=== PATIENT | male | born 1995 | race Caucasian/White ===

== ENCOUNTER → 2021-07-17 | Outpatient (CLI) | payer SELFPAY ==
[2021-07-17 18:52] LABS: Basophils # (A) 0.04 X 10*3/uL (0.00-0.10); Basophils % (A) 0.8 %; Eosinophils # (A) 0.08 X 10*3/uL (0.04-0.35); Eosinophils % (A) 1.6 %; HCT 46.1 % (39.6-50.0); HGB 15.5 g/dL (13.0-17.0); Lymphocytes # (A) 2.09 X 10*3/uL (0.90-5.00); Lymphocytes % (A) 42.8 %; MCH 29.9 pg (27.0-32.0); MCHC 33.6 g/dL (32.0-37.0); Mean Platelet Volume 11.1 fL (9.5-12.2); Monocytes # (A) 0.41 X 10*3/uL (0.20-1.00); Monocytes % (A) 8.4 %; Neutrophils # (A) 2.25 X 10*3/uL (1.80-7.70); Neutrophils % (A) 46.2 %; Platelet Count 188 X 10*3/uL (140-440); RBC 5.18 X 10*6/uL (4.40-5.60); RDW 12.5 % (11.5-14.5); WBC 4.88 X 10*3/uL (4.50-10.00)
== END | disposition home or self-care (01) ==
LOC: LABWHC1 11:43
PROVIDERS: ATTEND Surgery
DX: K40.90 Unilateral inguinal hernia, without obstruction or gangrene, not specified as recurrent (principal)
CPT/HCPCS: 36415; 85025

== ENCOUNTER 2021-07-24 06:03 | Day surgery (SDC) | payer OTHER ==
[2021-07-17 11:40] VITALS: BMI 29.5
[~2021-07-24 06:03] MED LIST: ACETAMINOPHEN TAB 500 MG TAB PO PRN; HEPARIN SODIUM,PORCINE/PF 5,000 UNIT/0.5 ML SYRINGE SQ PRN
[2021-07-24] MEDS ORDERED: LACTATED RINGERS 1,000 ML IV SCH (06:16)
[2021-07-24] MEDS ORDERED: SCOPOLAMINE 1.5MG/72HR PATCH TRANSDERM ONE (06:16)
[2021-07-24] MEDS ORDERED: DEXAMETHASONE SOD PHOSPHATE 4 MG/ML 1 ML VIAL IV ONE (06:16)
[2021-07-24] MEDS ORDERED: MIDAZOLAM 2 MG/2 ML VIAL IV PRN (06:16)
[2021-07-24] MEDS: ONDANSETRON 4 MG/2 ML VIAL IVP ONE ×2 (06:51→11:58)
[2021-07-24] MEDS ORDERED: LIDOCAINE 1% (10MG/ML) FOR IV START INTRADERMA ONE (06:51)
[2021-07-24] MEDS ORDERED: HYDROmorphone 0.5 MG/0.5 ML SYRINGE IVP PRN (07:00)
[2021-07-24] MEDS ORDERED: fentaNYL (PF) 50 MCG/ML 2 ML AMP ONE (07:45)
[2021-07-24] MEDS ORDERED: MIDAZOLAM 2 MG/2 ML VIAL ONE (07:45)
[2021-07-24] MEDS ORDERED: PROPOFOL 10 MG/ML 20 ML VIAL IV ONE (07:45)
[2021-07-24] MEDS ORDERED: LIDOCAINE 1% INJ 10MG/ML (20 ML MDV) ONE (07:45)
[2021-07-24] MEDS ORDERED: KETAMINE 10 MG/ML 20 ML VIAL ONE (07:45)
[2021-07-24] MEDS ORDERED: ROCURONIUM 10 MG/ML (5 ML VIAL) IV ONE (07:45)
[2021-07-24] MEDS ORDERED: GLYCOPYRROLATE 0.2 MG/ML 2 ML VIAL ONE (07:45)
[2021-07-24] MEDS ORDERED: NEOSTIGMINE 1 MG/ML 10 ML VIAL ONE (07:45)
[2021-07-24] MEDS ORDERED: BUPIVACAINE (PF) 0.25% 30 ML VIAL SQ ONE ×2 (08:16)
--- NOTE | 2021-07-24 09:35 | P.OP ---
Date of Procedure: 07/24/21 Procedure(s) Performed: PREOPERATIVE DIAGNOSIS: Left inguinal hernia POSTOPERATIVE DIAGNOSIS: Left indirect inguinal hernia PROCEDURE: Laparoscopic da Cullen assisted repair left direct inguinal hernia with mesh SURGEON: Dr. Reyes ANESTHESIA: General OPERATIVE PROCEDURE DETAILS: Patient was placed in the operating table in the supine position. The patient was placed under general anesthesia. The abdomen was prepped and draped in usual sterile fashion. A small curvilinear supraumbilical incision was made. The fascia was retracted anteriorly with [place] forceps. The Veress needle was inserted. The saline drop test was normal. Insufflation took place to 15 mmHg. An 8 mm trocar was placed into the peritoneal cavity. 2 additional 8 mm trochars were placed in the right upper quadrant and left upper quadrant under visualization. The robotic arms were then brought in and docked into place. The fenestrated bipolar was used in the left arm and the laparoscopic darwin was utilized in the right arm. A 30 8 mm scope was used in the up position. The peritoneal cavity was inspected. The patient had an obvious direct hernia on the left-hand side. There was no visible hernia on the right-hand side. The peritoneum was incised in a horizontal fashion cephalad to the internal inguinal ring. Following that careful dissection of the preperitoneal space took place. This took place using both electrocautery, sharp dissection but primarily blunt dissection. Visualization of the pubic tubercle and Duke's ligament took place medially. Full dissection took place laterally as well. The hernia sac was fully dissected. Once we had adequate space the extra-large Bard 3-D mid mesh was advanced into the preperitoneal space and flattened out appropriately to cover all potential hernia sites. A 20V lock suture was used to secure the mesh to the medial aspect of the direct hernia defect. The peritoneal defect was then closed using a absorbable 2-0 VLok suture. The hernia sac was incorporated into the peritoneal closure to help prevent future recurrence. The pneumoperitoneum was then evacuated. The skin of all 3 sites was closed using a 4-0 Monocryl stitch. Skin glue was then applied. HERNIA CHARACTERISTICS: Length: 2cm Width: 2cm Type: Direct TYPE OF MESH USED: Bard 3-D mid XL LOCATION OF MESH: Preperitoneal FIXATION: 20V lock suture DISPOSITION: Stable to recovery room
[2021-07-24] MEDS ORDERED: IV FLUID CONTINUATION 1,000 ML IV ONE ×2 (09:36)
[2021-07-24 09:43] VITALS: TEMP 97.3
[2021-07-24] MEDS ORDERED: LACTATED RINGERS 1,000 ML IV ONE (09:50)
[2021-07-24 10:16] VITALS: RESP 16
[2021-07-24] MEDS ORDERED: KETOROLAC 15 MG/ML 1 ML VIAL ONE (10:20)
[2021-07-24] MEDS ORDERED: KETOROLAC 15 MG/ML 1 ML VIAL IVP ONE (10:22)
[2021-07-24] MEDS ORDERED: ONDANSETRON 4 MG/2 ML VIAL ONE (11:56)
[2021-07-24 12:26] VITALS: BP 137/76; PULSE 45
[2021-07-24] MEDS ORDERED: IBUPROFEN 600 MG TAB PO SCH (12:30)
[2021-07-24] MEDS ORDERED: ACETAMINOPHEN TAB 325 MG TAB PO SCH (15:00)
== END 2021-07-24 12:35 | disposition home or self-care (01) ==
LOC: OR 06:03
PROVIDERS: ATTEND Surgery
DX: K40.90 Unilateral inguinal hernia, without obstruction or gangrene, not specified as recurrent (principal)
CPT/HCPCS: 49650; C1781; J2250; J1100; J2710; J0690; J2405; J2001; J3010; J1885; J2704; J1170; J1644

== ENCOUNTER 2022-09-29 20:04 | Emergency (ER) | payer BC, OTHER ==
--- NOTE | 2022-09-29 20:41 | XR ---
EXAMINATION TYPE: XR chest 2V DATE OF EXAM: 09/29/2022 8:35 PM COMPARISON: None TECHNIQUE: XR chest 2V Frontal and lateral views of the chest. CLINICAL INDICATION:Male, 27 years old with history of chest pain; FINDINGS: Lungs/Pleura: There is no evidence of pleural effusion, focal consolidation, or pneumothorax. Pulmonary vascularity: Unremarkable. Heart/mediastinum: Cardiomediastinal silhouette is unremarkable. Musculoskeletal: No acute osseous pathology. IMPRESSION: No acute cardiopulmonary disease/process.
[2022-09-29] MEDS ORDERED: KETOROLAC 15 MG/ML 1 ML VIAL IVP STA (23:01)
[2022-09-29 23:13] VITALS: TEMP 97.9
[2022-09-29 23:38] LABS: Basophils # (A) 0.1 k/uL (0-0.2); Basophils % (A) 1 %; Eosinophils # (A) 0.1 k/uL (0-0.7); Eosinophils % (A) 3 %; HCT 45.1 % (39.0-53.0); HGB 15.3 gm/dL (13.0-17.5); Lymphocytes # (A) 2.7 k/uL (1.0-4.8); Lymphocytes % (A) 47 %; MCH 30.1 pg (25.0-35.0); MCV 88.5 fL (80.0-100.0); Mean Platelet Volume 8.3; Monocytes # (A) 0.3 k/uL (0-1.0); Monocytes % (A) 6 %; Neutrophils # (A) 2.3 k/uL (1.3-7.7); Neutrophils % (A) 41 %; Platelet Count 166 k/uL (150-450); RDW 12.7 % (11.5-15.5); WBC 5.7 k/uL (3.8-10.6)
[2022-09-30 00:06] LABS: ALT 29 U/L (4-49); AST 23 U/L (17-59); African American GFR (CKD) >90 (>60 ml/min/1.73 sqM); Albumin 4.4 g/dL (3.5-5.0); Alkaline Phosphatase 76 U/L (38-126); Anion Gap 6 mmol/L; Blood Urea Nitrogen 15 mg/dL (9-20); Calcium 9.2 mg/dL (8.4-10.2); Carbon Dioxide 27 mmol/L (22-30); Chloride 108 mmol/L (98-107); Glucose 101 mg/dL (74-99); Non-African American GFR(CKD) >90 (>60 ml/min/1.73 sqM); Potassium 4.2 mmol/L (3.5-5.1); Sodium 141 mmol/L (137-145); Total Bilirubin 0.4 mg/dL (0.2-1.3); Total Protein 6.6 g/dL (6.3-8.2)
[2022-09-30 00:28] VITALS: BP 121/76; PULSE 54; RESP 16
--- NOTE | 2022-09-30 00:29 | ED ---
General Adult HPI - General Chief complaint: Chest Pain Stated complaint: Chest cramping Time Seen by Provider: 09/29/22 22:53 Source: patient Mode of arrival: ambulatory Limitations: no limitations - History of Present Illness Initial comments: Patient is a 27-year-old male presenting with chief complaint of chest pain. Pain is located in the center of the chest, sharp stabbing pain that is worse with inspiration. Denies any injury or trauma. No shortness of breath. No palpitations or weakness. No fever or chills. No nausea or vomiting. No we akness. No recent illness. No cough, congestion, sore throat. No abdominal pain. No headache or dizziness. - Related Data Previous Rx's Medication Instructions Recorded oxyCODONE HCL [OxyIR] 5 mg PO Q6H PRN 3 Days #6 tab 07/24/21 Allergies Allergy/AdvReac Type Severity Reaction Status Date / Time No Known Allergies Allergy Verified 09/29/22 20:17 Review of Systems ROS Statement: Those systems with pertinent positive or pertinent negative responses have been documented in the HPI. ROS Other: All systems not noted in ROS Statement are negative. Past Medical History Past Medical History: No Reported History History of Any Multi-Drug Resistant Organisms: None Reported Past Surgical History: Hernia Repair, Orthopedic Surgery Additional Past Surgical History / Comment(s): arthroscopy left knee, wisdom teeth Past Anesthesia/Blood Transfusion Reactions: No Reported Reaction Past Psychological History: No Psychological Hx Reported Smoking Status: Never smoker Past Alcohol Use History: Occasional Past Drug Use History: None Reported - Past Family History Sister(s) Family Medical History: Pulmonary Embolus Additional Family Medical History / Comment(s): some sort of cardiac issue & possibly PE General Exam Limitations: no limitations General appearance: alert, in no apparent distress Head exam: Present: atraumatic, normocephalic, normal inspection Eye exam: Present: normal appearance Neck exam: Present: normal inspection Respiratory exam: Present: normal lung sounds bilaterally. Absent: respiratory distress, wheezes, rales, rhonchi, stridor Cardiovascular Exam: Present: regular rate, normal rhythm, normal heart sounds. Absent: systolic murmur, diastolic murmur, rubs, gallop, clicks Neurological exam: Present: alert, oriented X3, CN II-XII intact Psychiatric exam: Present: normal affect, normal mood Skin exam: Present: warm, dry, intact, normal color. Absent: rash Course Vital Signs 09/29/22 09/29/22 09/30/22 20:17 23:05 00:27 Temperature 98.5 F 97.9 F Pulse Rate 53 L 52 L 54 L Respiratory 16 17 16 Rate Blood Pressure 122/67 116/78 121/76 O2 Sat by Pulse 98 99 98 Oximetry EKG Findings - EKG Comments: EKG Findings:: Sinus bradycardia with sinus arrhythmia. Rate 52. OK interval 152. QRS 110. QT 443. QTC 422. No ST deviation or T wave inversion. Medical Decision Making - Medical Decision Making Patient is a 27-year-old male presenting with chief complaint of chest pain. Pain is sharp and stabbing in nature, worse with inspiration. No lower extremity swelling, heart and lungs are clear to auscultation, vital signs are stable. CBC is unremarkable. Troponin is less than 0.012. Patient is negative for Covid. CMP requires no action. Chest x-ray shows no acute process. EKG shows no signs of ischemia. Patient is educated on costochondritis and supportive treatment. Follow-up with PCP. Report back to ER with any new or worsening symptoms. Discussed return parameters and answered all questions. Patient conveyed verbal understanding and agreed to the plan. I discussed this case in detail with my attending Dr. Hough - Lab Data Result diagrams: 09/29/22 23:20 09/29/22 23:20 Lab Results 09/29/22 09/29/22 09/29/22 Range/Units 23:20 23:20 23:20 WBC 5.7 (3.8-10.6) k/uL RBC 5.10 (4.30-5.90) m/uL Hgb 15.3 (13.0-17.5) gm/dL Hct 45.1 (39.0-53.0) % MCV 88.5 (80.0-100.0) fL MCH 30.1 (25.0-35.0) pg MCHC 34.0 (31.0-37.0) g/dL RDW 12.7 (11.5-15.5) % Plt Count 166 (150-450) k/uL MPV 8.3 Neutrophils % 41 % Lymphocytes % 47 % Monocytes % 6 % Eosinophils % 3 % Basophils % 1 % Neutrophils # 2.3 (1.3-7.7) k/uL Lymphocytes # 2.7 (1.0-4.8) k/uL Monocytes # 0.3 (0-1.0) k/uL Eosinophils # 0.1 (0-0.7) k/uL Basophils # 0.1 (0-0.2) k/uL Sodium 141 (137-145) mmol/L Potassium 4.2 (3.5-5.1) mmol/L Chloride 108 H (98-107) mmol/L Carbon Dioxide 27 (22-30) mmol/L Anion Gap 6 mmol/L BUN 15 (9-20) mg/dL Creatinine 0.83 (0.66-1.25) mg/dL Est GFR (CKD-EPI)AfAm >90 (>60 ml/min/1.73 sqM) Est GFR (CKD-EPI)NonAf >90 (>60 ml/min/1.73 sqM) Glucose 101 H (74-99) mg/dL Calcium 9.2 (8.4-10.2) mg/dL Total Bilirubin 0.4 (0.2-1.3) mg/dL AST 23 (17-59) U/L ALT 29 (4-49) U/L Alkaline Phosphatase 76 (38-126) U/L Troponin I <0.012 (0.000-0.034) ng/mL Total Protein 6.6 (6.3-8.2) g/dL Albumin 4.4 (3.5-5.0) g/dL Coronavirus (PCR) (Not Detectd) 09/29/22 Range/Units 23:20 WBC (3.8-10.6) k/uL RBC (4.30-5.90) m/uL Hgb (13.0-17.5) gm/dL Hct (39.0-53.0) % MCV (80.0-100.0) fL MCH (25.0-35.0) pg MCHC (31.0-37.0) g/dL RDW (11.5-15.5) % Plt Count (150-450) k/uL MPV Neutrophils % % Lymphocytes % % Monocytes % % Eosinophils % % Basophils % % Neutrophils # (1.3-7.7) k/uL Lymphocytes # (1.0-4.8) k/uL Monocytes # (0-1.0) k/uL Eosinophils # (0-0.7) k/uL Basophils # (0-0.2) k/uL Sodium (137-145) mmol/L Potassium (3.5-5.1) mmol/L Chloride (98-107) mmol/L Carbon Dioxide (22-30) mmol/L Anion Gap mmol/L BUN (9-20) mg/dL Creatinine (0.66-1.25) mg/dL Est GFR (CKD-EPI)AfAm (>60 ml/min/1.73 sqM) Est GFR (CKD-EPI)NonAf (>60 ml/min/1.73 sqM) Glucose (74-99) mg/dL Calcium (8.4-10.2) mg/dL Total Bilirubin (0.2-1.3) mg/dL AST (17-59) U/L ALT (4-49) U/L Alkaline Phosphatase (38-126) U/L Troponin I (0.000-0.034) ng/mL Total Protein (6.3-8.2) g/dL Albumin (3.5-5.0) g/dL Coronavirus (PCR) Not Detected (Not Detectd) Disposition Clinical Impression: Atypical chest pain Disposition: HOME SELF-CARE Condition: Good Instructions (If sedation given, give patient instructions): Chest Pain (ED), Costochondritis (ED) Additional Instructions: Follow-up with PCP. Report back to ER with any new or worsening symptoms. Take Motrin and Tylenol as needed for pain control. Is patient prescribed a controlled substance at d/c from ED?: No Referrals: Dusty Hernández DO [Primary Care Provider] - 1-2 days Time of Disposition: 00:28
== END 2022-09-30 01:19 | disposition home or self-care (01) ==
LOC: EC 20:04
DX: R07.89 Other chest pain (principal); Z20.822 Contact with and (suspected) exposure to COVID-19
CPT/HCPCS: 99285 ×2; 96374 ×2; 36415; 93005; 80053; 84484; 85025; 87635; 71046; J1885

== ENCOUNTER 2024-01-15 19:49 | Outpatient (CLI) | payer OTHER ==
--- NOTE | 2024-01-26 23:21 | P.PCN ---
Date of Procedure: 01/15/24 Operative Findings: Polysomnography report Date of service is 01/15/2024 Pertinent physical findings Height is 6 feet and 4 inches, weight is 253 pounds with a BMI of 30.8 Pertinent history Patient has chronic fatigue and hypersomnia. Despite his low Castalia score and his ability to function at work which is essentially preserved, he is struggling with excessive fatigue and tiredness and sleepiness during the day. He is going to bed early and he may have an underlying advanced sleep phase syndrome. At the same time, the patient has nightmares related to PTSD. The patient has been followed up through the NH and he was offered prazosin her treatment has not been started yet. No other SSRI treatment although Zoloft was an option as was discussed with him earlier. In terms of sleep apnea, the patient has loud snoring, wakes up due to his loud snoring the same time as Mallampati class IV with significant crowding of the posterior pharynx and micrognathia. Technical description The patient was studied using a standard complex polysomnography protocol that included recording of the 2 EKG, Central, occipital and frontal EEG, right and left outer canthus EOG, submental EMG, right and left anterior tibialis EMG, respiratory airflow by thermocouple and or pressure/flow transducer, respiratory efforts by abdominal and thoracic PVDF belts, oxygen saturation by cable oximetry. Position by observation synchronized the PSG. Equipment used: [employer] Microguides. Sleep architecture The total recording duration was 451.0 minutes. Total sleep time was 428.0 minutes. The overall sleep efficiency was 94.9%. Latency to sleep onset was 8.5 minutes. Latency to REM sleep was 22 minutes and the sleep architecture was catheterized by 8.3% stage I, 67.8% stage II, 0.7% stage III and XX 3.2% x 3. The wake after sleep onset time was 40.5 minutes. The total arousal index was 6.2 Respiratory events Respiratory analysis showed 5 obstructive events of which 0 obstructive apneas, 0 mixed apneas and 5 obstructive hypopneas and the resulting AHI was 0.4. No significant nocturnal oxygen desaturation and the patient was able to maintain an x-ray saturation of 90%. As such, there is no significant sleep breathing disorder in this patient. Periodic limb movement activity The patient had a total of 46 periodic limb movement activity with an index of 6.4. There were only 7 limb movement activities with arousals with an index of 1.0 Sleep continuity summary A total of 44 arousals with an index of 6.2 and the respiratory arousal index was 0.1 Cardiac summary Average heart rate was 65 with a minimum heart rate of 57 and a maximum heart rate of 73 Assessment Excessive hypersomnia without indication for underlying sleep breathing disorder. The patient's AHI was 0.4. No evidence of any nocturnal oxygen saturations Adequate sleep efficiency of 94.9% Short REM sleep latency of 22 minutes No excessive periodic limb movement activity No significant sleep fragmentation Obesity with a BMI of 30.8 History of traumatic brain injury History of PTSD History of nightmares, will start prazosin treatment Plan No benefit from CPAP therapy as there is no significant sleep breathing disorder No concerns of narcolepsy Symptoms could be related to a traumatic brain injury Consider daytime stimulation to improve the level of alertness, consider Provigil therapy Prazosin for nightmares Weight loss Implement good sleep hygiene measures Will follow
== END 2024-01-16 04:35 | disposition home or self-care (01) ==
LOC: 3 N SLEEP 19:49
PROVIDERS: ATTEND Internal Medicine Critical Care Medicine
DX: G47.10 Hypersomnia, unspecified (principal); E66.9 Obesity, unspecified; G47.30 Sleep apnea, unspecified; F43.10 Post-traumatic stress disorder, unspecified; G47.52 REM sleep behavior disorder; Z68.30 Body mass index [BMI] 30.0-30.9, adult; Z87.820 Personal history of traumatic brain injury
CPT/HCPCS: 95810